=== PATIENT | female | born 1955 | race Caucasian/White ===

== ENCOUNTER 2022-07-14 09:26 | Outpatient (CLI) | payer OTHER ==
[~2022-07-14 09:26] MED LIST: Iopamidol 300 61% 100 ML VIAL FS ONE; Magnevist 469MG/ML 20 ML VIAL ONE
== END 2022-07-14 09:27 | disposition home or self-care (01) ==
LOC: CSHMRI 09:26
PROVIDERS: ATTEND Physician Assistant
DX: R07.81 Pleurodynia (principal); M51.34 Other intervertebral disc degeneration, thoracic region; M54.14 Radiculopathy, thoracic region; M48.54XA Collapsed vertebra, not elsewhere classified, thoracic region, initial encounter for fracture
CPT/HCPCS: 71260; 72157; 82565